=== PATIENT | female | born 1970 | race African-American/Black ===

== ENCOUNTER 2016-09-26 10:24 | Emergency (ER) | payer BC ==
--- NOTE | 2016-09-26 10:31 | PDOC ---
History of Present Illness - General Chief Complaint: Sore Throat Stated Complaint: SORE THROAT Time Seen by Provider: 09/26/16 10:25 History Source: Patient Exam Limitations: No Limitations - History of Present Illness Initial Comments: 09/26/16 10:27 This is a 46 yo F who presents to the ER with a complaint of throat pain Pt states she began having URI symptoms more than 10 days ago No known fevers or chills Taking motrin PT reports right throat pain No drooling, no difficulty tolerating her saliva No vocal changes No neck pain PMH: denies PSH: "long time ago, not worth mentioning" Meds: Restasis ALL: meperidine --> urticarial Social: denies alcohol, drugs, cigarettes GENERAL/CONSTITUTIONAL: No: fever, chills, weakness, loss of appetite. HEAD, EYES, EARS, NOSE AND THROAT: Yes: throat pain No: change in vision, ear pain, discharge, throat swelling. SKIN: No: lesions, pallor, rash or easy bruising. NEUROLOGIC: No: headache, vertigo, paresthesias, weakness GENERAL: The patient is in no acute distress. HEAD: Normal with no signs of trauma. EYES: PERRLA, EOMI, sclera anicteric, conjunctiva clear. ENT: (+) pharyngeal erythema, No tonsillar enlargement, no exudate, Moist mucous membranes. NECK: Normal range of motion, supple without lymphadenopathy, JVD, or masses. SKIN: Warm, Dry, normal turgor, no rashes or lesions noted. 09/26/16 10:35 09/26/16 10:37 09/26/16 10:38 Past History - Past Medical History Allergies/Adverse Reactions: Allergies Allergy/AdvReac Type Severity Reaction Status Date / Time meperidine HCl [From Demerol] Allergy Severe CARDIAC Verified 09/26/16 10:25 ARREST Home Medications: Ambulatory Orders Cyclosporine [Restasis] 1 each OP DAILY 07/11/16 Ibuprofen [Motrin -] 600 mg PO PRN PRN 09/26/16 - Psycho/Social/Smoking Cessation Hx Anxiety: No Suicidal Ideation: No Smoking Status: No Smoking History: Never smoked Number of Cigarettes Smoked Daily: 0 Hx Alcohol Use: No Drug/Substance Use Hx: No Substance Use Type: Alcohol Medical Decision Making - Medical Decision Making 09/26/16 10:28 Sore throat DD: pharyngitis, Strep pharyngitis Will send rapid strep Will re assess 09/26/16 11:16 Rapid strep negative 09/27/16 08:30 Clinical impression: viral pharyngitis vs. post nasal drip *DC/Admit/Observation/Transfer Diagnosis at time of Disposition: Pharyngitis Qualifiers: Pharyngitis/tonsillitis etiology: other specified organisms Qualified Code(s): J02.8 - Acute pharyngitis due to other specified organisms - Discharge Dispostion Disposition: HOME Condition at time of disposition: Improved Admit: No - Patient Instructions Printed Discharge Instructions: DI for Viral Pharyngitis, DI for Pharyngitis/ Tonsillopharyngitis -- Adult Additional Instructions: Cassia Thank you for coming in to the ER today Your rapid strep was negative You likely have viral pharyngitis Your culture will return in 2-3 days We will call you with those results Return to the ER for any other concerns or complaints
[2016-09-26 10:38] VITALS: BP 128/90; PULSE 72; TEMP 98.3; BMI 25.3
[2016-09-26] MEDS ORDERED: IBUPROFEN 600 MG TABLET (FP) PO ONE ×2 (11:06→11:07)
== END 2016-09-26 11:18 | disposition home or self-care (01) ==
LOC: FER 10:24
DX: J02.8 Acute pharyngitis due to other specified organisms (principal); B97.89 Other viral agents as the cause of diseases classified elsewhere
CPT/HCPCS: 87070; 87430; 99282-25

== ENCOUNTER 2017-01-28 09:27 | Emergency (ER) | payer BC ==
--- NOTE | 2017-01-28 09:29 | PDOC ---
Attending Attestation - Resident Resident Name: Alivia Salazar - ED Attending Attestation I have performed the following: I have examined & evaluated the patient, The case was reviewed & discussed with the resident, I agree w/resident's findings & plan, Exceptions are as noted - HPI HPI: 01/28/17 09:29 The patient is a 46-year-old female with no significant past medical history who presents to the emergency department with approximately 2 months of cough. The cough was initially productive, and then resolved 2 near completion after approximately 2 weeks. However, the cough continued and approximately one week ago worsened, now becoming productive of a green sputum. She denies dyspnea. She denies a feeling of postnasal drip, sore throat. It is not more severe at night. She denies fever, chills, sweats. She denies myalgia, arthralgia, rash, paresthesias. She denies new occupational exposures. She feels a feeling of chest tightness with deep inspiration. She denies chest pain, orthopnea, lower extremity edema. 01/28/17 10:27 - Physicial Exam PE: 01/28/17 10:28 She is well-appearing and in no acute distress Vitals noted She has mild post inspiratory cough Lungs are clear to auscultation bilaterally, without wheezes, rhonchi or crackles - Medical Decision Making 01/28/17 10:29 She is well-appearing and in no acute distress We'll administer duo neb Will obtain PA and lateral chest x-ray 01/28/17 11:00 No improvement after neb Clinical impression: Bronchitis, possibly bacterial The patient is adamantly requested antibiotics Given the pattern of improvement, followed by worsening, and her adamant request for antibiotics, will prescribe Z-Rachid I discussed the physical exam findings, ancillary test results and final diagnoses with the patient. I answered all of the patient's questions. The patient was satisfied with the care received and felt comfortable with the discharge plan and treatment plan. The patient will call their primary care physician within 24 hours to arrange follow-up and will return to the Emergency Department with any new, persistent or worsening symptoms.
[2017-01-28 09:43] VITALS: BP 133/95; PULSE 70; TEMP 98.7; BMI 25.5
[2017-01-28] MEDS ORDERED: ALBUTEROL SO4 2.5/IPRATROPIUM 0.5 INH SOL 3 ML VIAL.NEB. NEB ONE ×2 (10:10→10:25)
--- NOTE | 2017-01-28 10:57 | PDOC ---
History of Present Illness <Joe Sutton - Last Filed: 01/28/17 11:04> - General History Source: Patient Exam Limitations: No Limitations - History of Present Illness Initial Comments: 01/28/17 10:56 01/28/17 11:05 This is a previously healthy 46 yo F who presents with productive cough x 2 mo. 2 mo ago her symptoms started with sore throat, runny nose and dry cough, she was seen in ER and told it is a viral illness. Her symptoms, including cough resolved but then the cough returned, this time productive with small amt of green sputum and chest tightness. She denies sob, chest pain, f/c, postnasal drip, gerd. She denies any recent abx use. She is a nurse at [employer]. She denies history of asthma, copd, smoking, second hand smoke exposure, seasonal allergy. <Alivia Salazar - Last Filed: 01/28/17 11:41> - General Chief Complaint: Cold Symptoms Stated Complaint: COUGH Time Seen by Provider: 01/28/17 09:28 Past History <Joe Sutton - Last Filed: 01/28/17 11:04> - Past Medical History Other medical history: DENIES - Immunization History Immunization Up to Date: Yes - Psycho/Social/Smoking Cessation Hx Anxiety: No Suicidal Ideation: No Smoking Status: No Smoking History: Never smoked Have you smoked in the past 12 months: No Number of Cigarettes Smoked Daily: 0 Information on smoking cessation initiated: No Hx Alcohol Use: No Drug/Substance Use Hx: No Substance Use Type: Alcohol <Alivia Salazar - Last Filed: 01/28/17 11:41> - Past Medical History Allergies/Adverse Reactions: Allergies Allergy/AdvReac Type Severity Reaction Status Date / Time meperidine HCl [From Demerol] Allergy Severe CARDIAC Verified 09/26/16 10:25 ARREST Home Medications: Ambulatory Orders Cyclosporine [Restasis] 1 each OP DAILY 07/11/16 Azithromycin [Zithromax Tri-Rachid (3 DAYS) -] 500 mg PO DAILY #3 tablet 01/28/17 Dextromethorphan HBr [Robitussin] 15 mg PO BID PRN #30 capsule 01/28/17 Review of Systems - Review of Systems Able to Perform ROS?: Yes Is the patient limited Swedish proficient: No Constitutional: No: Chills, Fever, Loss of Appetite, Malaise, Night Sweats, Weakness, Unexplained wgt Loss HEENTM: No: Ear Discharge, Nose Pain, Nose Congestion, Hearing Loss, Throat Pain , Throat Swelling, Dental Problems, Difficulty Swallowing Respiratory: Yes: Cough, Productive cough. No: Orthopnea, Shortness of Breath, SOB with Exertion, Stridor, Wheezing Cardiac (ROS): Yes: Chest Tightness. No: Chest Pain, Edema, Irregular Heart Rate, Lightheadedness, Palpitations, Syncope ABD/GI: No: Abdominal Distended, Constipated, Diarrhea, Nausea, Rectal Bleeding , Vomiting, Abdominal cramping, Tarry Stools : No: Dysuria, Flank Pain Musculoskeletal: No: Back Pain, Joint Pain Integumentary: No: Bruising, Rash, Sweating Neurological: No: Headache, Numbness, Paresthesia Psychiatric: No: Anxiety, Depression Endocrine: No: Change in Weight Hematologic/Lymphatic: No: Anemia, Blood Clots, Easy Bleeding, Easy Bruising All Other Systems: Reviewed and Negative <Alivia Salazar - Last Filed: 01/28/17 11:41> *Physical Exam - Vital Signs Last Vital Signs Temp Pulse Resp BP Pulse Ox 98.7 F 70 20 133/95 100 01/28/17 09:27 01/28/17 09:27 01/28/17 09:27 01/28/17 09:27 01/28/17 09:27 <Joe Sutton - Last Filed: 01/28/17 11:04> - Vital Signs Last Vital Signs Temp Pulse Resp BP Pulse Ox 98.7 F 70 20 133/95 100 01/28/17 09:27 01/28/17 09:27 01/28/17 09:27 01/28/17 09:27 01/28/17 09:27 - Physical Exam Comments: 01/28/17 11:15 General: AAO x3 NAD HEENT: atraumatic, normocephalic, perrla, eomi, sclera anicteric, conjunctiva clear CV: RRR S1S2 Pulm: CTA b/l GI: soft, nontender, nondistended, normoactive bowel sounds, no mass Neuro: CN II-XII grossly intact 01/28/17 11:23 01/28/17 11:38 <Alivia Salazar - Last Filed: 01/28/17 11:41> ED Treatment Course - RADIOLOGY Radiology Studies Ordered: Category Date Time Status CHEST PA & LAT [RAD] Stat Radiology 01/28/17 10:29 Completed - Medications Given in the ED: ED Medications Discontinued Medications Generic Name Dose Route Start Last Admin Trade Name Freq PRN Reason Stop Dose Admin Albuterol/Ipratropium 1 amp 01/28/17 10:10 01/28/17 10:27 Duoneb - NEB 01/28/17 10:11 1 amp ONCE ONE Administration <Joe Sutton - Last Filed: 01/28/17 11:04> - Medications Given in the ED: ED Medications Discontinued Medications Generic Name Dose Route Start Last Admin Trade Name Freq PRN Reason Stop Dose Admin Albuterol/Ipratropium 1 amp 01/28/17 10:10 01/28/17 10:27 Duoneb - NEB 01/28/17 10:11 1 amp ONCE ONE Administration <Alivia Salazar - Last Filed: 01/28/17 11:41> Medical Decision Making - Medical Decision Making 01/28/17 11:38 Patient presents with clinical picture most consistent with bacterial bronchitis. r/o bronchospasm or pna gave duoneb-no improvement cxr unremarkable This is likley bacterial bronchitis. Will d/c with z pack and robitussin Patient advised to f/u with pcpc or return to ER if symptoms persist or worsen in 1 week. <Alivia Salazar - Last Filed: 01/28/17 11:41> *DC/Admit/Observation/Transfer <Joe Sutton - Last Filed: 01/28/17 11:04> - Discharge Dispostion Admit: No <Alivia Salazar - Last Filed: 01/28/17 11:41> Diagnosis at time of Disposition: Bronchitis - Prescriptions Prescriptions: Dextromethorphan HBr [Robitussin] 15 mg PO BID PRN #30 capsule PRN Reason: Cough Azithromycin [Zithromax Tri-Rachid (3 DAYS) -] 500 mg PO DAILY #3 tablet - Patient Instructions Printed Discharge Instructions: DI for Acute Bronchitis Additional Instructions: You have a chronic bacterial bronchitis. You symptoms should resolve soon after completion of a 3 day course of Azithromycin. We also prescribed Robitussin for cough. If cough does not resolve or gets worse, please return to ER or visit your Primary doctor. - Post Discharge Activity Work/School Note: Back to Work
== END 2017-01-28 11:06 | disposition home or self-care (01) ==
LOC: FER 09:27
PROC: 3E0F7GC Introduction of Other Therapeutic Substance into Respiratory Tract, Via Natural or Artificial Opening (ICD-10-PCS; principal; 2017-01-28)
DX: J40 Bronchitis, not specified as acute or chronic (principal)
CPT/HCPCS: 71020-TC; 99281-25

== ENCOUNTER 2021-07-04 16:53 | Emergency (ER) | payer OTHER ==
[2021-07-04 17:00] VITALS: BP 130/80; PULSE 63; TEMP 97.6; BMI 26.6
[2021-07-04] MEDS ORDERED: ACETAMINOPHEN 1000 MG/100 ML VIAL IVPB ONE (18:22)
[2021-07-04] MEDS ORDERED: ACETAMINOPHEN INJECTION 100 ML IVPB ONE (18:29)
[2021-07-04 18:53] LABS: BASO % 0.9 % (0-2.0); EOS % 1.3 % (0-4.5); HEMATOCRIT 40.9 % (32.4-45.2); HEMOGLOBIN 13.7 GM/dL (10.7-15.3); LYMPH % 26.4 % (8-40); MCH 30.2 pg (25.7-33.7); MCHC 33.5 g/dl (32.0-36.0); MEAN CELL VOLUME 89.9 fl (80-96); MEAN PLT VOLUME 8.9 fl (7.5-11.1); MONO % 7.6 % (3.8-10.2); NEUT % 63.8 % (42.8-82.8); PLATELET COUNT 168 10^3/uL (134-434); RBC 4.55 M/mm3 (3.60-5.2); RDW 13.2 % (11.6-15.6); WHITE BLOOD COUNT 5.3 K/mm3 (4.0-10.0)
[2021-07-04 18:59] LABS: HCG,QUALITATIVE URINE Negative
[2021-07-04 19:09] LABS: ALBUMIN 3.9 g/dl (3.4-5.0); BLOOD UREA NITROGEN 14.6 mg/dL (7-18)
[2021-07-04 19:11] LABS: EPI CELLS 2 /uL (0-25.1); HYALINE CASTS 0 /uL (0-3.1); PH,URINE 5.5 (5.0-8.0); URINE APPEARANCE CLEAR; URINE BACTERIA 64 /uL (0-1359); URINE BILIRUBIN NEGATIVE (NEGATIVE); URINE COLOR YELLOW; URINE GLUCOSE (UA) NEGATIVE (NEGATIVE); URINE KETONE NEGATIVE (NEGATIVE); URINE LEUK ESTERASE NEGATIVE (NEGATIVE); URINE NITRITE NEGATIVE (NEGATIVE); URINE PROTEIN NEGATIVE (NEGATIVE); URINE RBC 2 /uL (0-23.9); URINE UROBILINOGEN 0.2 mg/dL (0.2-1.0); URINE WBC 9 /uL (0-25.8)
[2021-07-04 19:12] LABS: CREATININE 0.8 mg/dL (0.55-1.3)
[2021-07-04 19:13] LABS: TOT PROT 7.4 g/dl (6.4-8.2)
[2021-07-04] MEDS ORDERED: SODIUM CHLORIDE 1,000 ML IV STA (19:13)
[2021-07-04 19:15] LABS: BILIRUBIN,TOTAL 0.4 mg/dL (0.2-1)
== END 2021-07-04 20:50 | disposition home or self-care (01) ==
LOC: JER 16:53
PROC: 3E033NZ Introduction of Analgesics, Hypnotics, Sedatives into Peripheral Vein, Percutaneous Approach (ICD-10-PCS; principal; 2021-07-04)
PROC: 3E0337Z Introduction of Electrolytic and Water Balance Substance into Peripheral Vein, Percutaneous Approach (ICD-10-PCS; 2021-07-04)
DX: R10.9 Unspecified abdominal pain (principal)
CPT/HCPCS: 36415; 74177-TC; 80053; 81003; 83690; 84703; 85025; 99285-25; Q9967

== ENCOUNTER 2023-03-16 16:32 | Emergency (ER) | payer OTHER ==
[2023-03-16 16:44] VITALS: BMI 27.1
[2023-03-16] MEDS ORDERED: SODIUM CHLORIDE 0.9% 500 ML INFUS.BAG IV ONE (17:00)
[2023-03-16] MEDS ORDERED: ACETAMINOPHEN 1000 MG/100 ML BAG IVPB ONE (17:00)
[2023-03-16] MEDS ORDERED: ACETAMINOPHEN INJECTION 100 ML IVPB ONE (17:16)
[2023-03-16 17:41] LABS: URINE APPEARANCE CLEAR; URINE BILIRUBIN NEGATIVE (NEGATIVE); URINE COLOR YELLOW; URINE GLUCOSE (UA) NEGATIVE (NEGATIVE); URINE KETONE NEGATIVE (NEGATIVE); URINE LEUK ESTERASE NEGATIVE (NEGATIVE); URINE NITRITE NEGATIVE (NEGATIVE); URINE PROTEIN NEGATIVE (NEGATIVE); URINE UROBILINOGEN 0.2 mg/dL (0.2-1.0)
[2023-03-16 17:44] LABS: HCG,QUALITATIVE URINE Negative
[2023-03-16 17:48] LABS: BASO % 0.9 % (0-2.0); EOS % 1.2 % (0-4.5); HEMATOCRIT 42.9 % (32.4-45.2); HEMOGLOBIN 14.3 GM/dL (10.7-15.3); LYMPH % 34.5 % (8-40); MCH 29.8 pg (25.7-33.7); MCHC 33.5 g/dl (32.0-36.0); MEAN PLT VOLUME 9.3 fl (7.5-11.1); MONO % 7.5 % (3.8-10.2); NEUT % 55.9 % (42.8-82.8); PLATELET COUNT 179 10^3/uL (134-434); RBC 4.82 M/mm3 (3.60-5.2); RDW 13.2 % (11.6-15.6); WHITE BLOOD COUNT 5.2 K/mm3 (4.0-10.0)
[2023-03-16 17:52] LABS: POTASSIUM 4.3 mmol/L (3.5-5.1)
[2023-03-16 17:54] LABS: BLOOD UREA NITROGEN 12.7 mg/dL (7-18); CALCIUM 9.7 mg/dL (8.5-10.1)
[2023-03-16 17:55] LABS: ALBUMIN 4.4 g/dl (3.4-5.0)
[2023-03-16 17:57] LABS: CREATININE 0.8 mg/dL (0.55-1.3)
[2023-03-16 17:59] LABS: BILIRUBIN,TOTAL 0.4 mg/dL (0.2-1); TOT PROT 7.8 g/dl (6.4-8.2)
[2023-03-16] MEDS ORDERED: KETOROLAC TROMETHAMINE 15 MG/ML VIAL IVPUSH ONE (18:08)
[2023-03-16] MEDS ORDERED: KETOROLAC TROMETHAMINE 15 MG/ML VIAL ONE (18:19)
[2023-03-16] MEDS ORDERED: MAG HYDROX/AL HYDROX/SIMETH 30 ML UNIT-DOSE CUP PO ONE (18:42)
[2023-03-16] MEDS ORDERED: FAMOTIDINE 20 MG/50 ML IVPB 20 MG/50 ML MG IVPB ONE ×2 (18:42→19:22)
[2023-03-16 18:54] VITALS: BP 127/84; PULSE 61; RESP 20; TEMP 97.1
[2023-03-16] MEDS ORDERED: MAG HYDROX/AL HYDROX/SIMETH 30 ML UNIT-DOSE CUP ONE (19:22)
[2023-03-16] MEDS ORDERED: PANTOPRAZOLE 40 MG TABLET PO ONE ×2 (19:26→19:34)
== END 2023-03-16 19:42 | disposition home or self-care (01) ==
LOC: JER 16:32
PROC: 3E033NZ Introduction of Analgesics, Hypnotics, Sedatives into Peripheral Vein, Percutaneous Approach (ICD-10-PCS; principal; 2023-03-16)
PROC: 3E0333Z Introduction of Anti-inflammatory into Peripheral Vein, Percutaneous Approach (ICD-10-PCS; 2023-03-16)
DX: R10.32 Left lower quadrant pain (principal); K29.70 Gastritis, unspecified, without bleeding; K59.00 Constipation, unspecified
CPT/HCPCS: 36415; 74177-TC; 80053; 81003; 84703; 85025; 87086; 99285-25; Q9967